=== PATIENT | female | born 2000 | race African-American/Black ===

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

== ENCOUNTER 2021-06-26 09:15 | Emergency (ER) | payer MEDICAID ==
[~2021-06-26] VITALS: Ht 162.6 cm; Wt 88.0 kg
[2021-06-26] MEDS ORDERED: IBUP-2029 MT (11:04)
[2021-06-26 11:24] VITALS: BP 108/76
== END 2021-06-26 11:25 | disposition home or self-care (01) ==
LOC: ER 09:15
DX: S82.842A Displaced bimalleolar fracture of left lower leg, initial encounter for closed fracture (principal); X58.XXXA Exposure to other specified factors, initial encounter; Y93.89 Activity, other specified; Y92.89 Other specified places as the place of occurrence of the external cause; Y99.8 Other external cause status
CPT/HCPCS: 29515; 73610; 99283